=== PATIENT | female | born 1950 | race Caucasian/White ===

== ENCOUNTER 2019-07-09 18:47 | Emergency (ER) | payer OTHER ==
[~2019-07-09] VITALS: Ht 154.9 cm; Wt 73.5 kg
--- NOTE | 2019-07-09 18:47 | NUR ---
Christiano Clive [phone]
--- NOTE | 2019-07-09 18:48 | NUR ---
PT PLACED IN BED 11 BY EMS.
[2019-07-09 18:50] VITALS: BP 156/82
--- NOTE | 2019-07-09 18:50 | NUR ---
PT DENIES CHEST PAIN; NEURO ASSESSMENT WDL.
--- NOTE | 2019-07-09 18:50 | NUR ---
68 Y/O F C/C DIZZINESS,CHILLS,HEADACHE,NAUSEA X TODAY APPROX 1830 HOURS. PT BIBA FROM HOME. H/A PAIN 8. PUPILS PERRLA. UNSTEADY GAIT, UNSTABLE WHEN STANDS UP, ONE PERSON ASSIST NEEDED. ALLERGIES ACETAMINOPHEN, CEFTRIAXONE,CODEINE. HX [place],PACEMAKER,HTN,HLD, PRE-DM. RX NITROGLYCERIN,AMLODOPINE,METROPOLOL,SIMVASTATIN. PT DENIES V/D. SIDE RAIL X1.
--- NOTE | 2019-07-09 18:50 | NUR ---
68 Y/O F C/C DIZZINESS,CHILLS,HEADACHE,NAUSEA X TODAY APPROX 1830 HOURS. PT BIBA FROM HOME. H/A PAIN 8. PUPILS PERRLA. UNSTEADY GAIT, UNSTABLE WHEN STANDS UP, ONE PERSON ASSIST NEEDED. ALLERGIES ACETAMINOPHEN, CEFTRIAXONE,CODEINE. HX [place],PACEMAKER,HTN,HLD, PRE-DM. RX NITROGLYCERIN,AMLODOPINE,METROPOLOL,SIMVASTATIN. PT DENIES V/D. SIDE RAIL X1.
--- NOTE | 2019-07-09 19:13 | NUR ---
RECEIVED REPORT FROM GABRIELLA GUEVARA. WILL CONT CARE AT THIS TIME.
--- NOTE | 2019-07-09 19:13 | NUR ---
REPORT GIVEN TO HALIMA QUIROZ FOR CONTINUITY OF CARE
[2019-07-09 19:15] LABS: BASOPHILS % (AUTO) 0.7 % (0.0-2.0); EOSINOPHILS # (AUTO) 0.1 K/uL (0-0.4); EOSINOPHILS % (AUTO) 2.2 % (0.0-4.0); HEMATOCRIT 38.2 % (36-48); HEMOGLOBIN 12.9 g/dL (12.0-16.0); LYMPHOCYTES # (AUTO) 2.6 K/uL (2.5-16.5); LYMPHOCYTES % (AUTO) 41.9 % (20.5-51.1); MEAN CORPUSCULAR HEMOGLOBIN 32 pg (27-31); MEAN CORPUSCULAR HGB CONC 34 g/dL (33-37); MEAN CORPUSCULAR VOLUME 94.2 fL (80-94); MONOCYTES # (AUTO) 0.5 K/uL (0.8-1.0); MONOCYTES % (AUTO) 7.4 % (1.7-9.3); NEUTROPHILS % (AUTO) 47.8 % (42.2-75.2); PLATELET COUNT (AUTO) 251 K/uL (140-450); RED BLOOD CELL COUNT(AUTO) 4.06 MIL/uL (4.20-5.40); RED CELL DISTRIBUTION WIDTH 13.1 % (11.6-13.7); WHITE BLOOD COUNT (AUTO) 6.3 K/uL (4.8-10.8)
--- NOTE | 2019-07-09 19:27 | NUR ---
ARSH HIGGINBOTHAM AT BEDSIDE EVAL PT.
[2019-07-09 19:38] LABS: ALBUMIN 3.7 g/dL (3.4-5.0); ANION GAP 13.8 (8-16); CARBON DIOXIDE 28.1 mmol/L (21-32); POTASSIUM 3.9 mmol/L (3.5-5.1); TOTAL BILIRUBIN 0.2 mg/dL (0.0-1.0)
[2019-07-09 21:18] VITALS: BP 123/61
--- NOTE | 2019-07-09 21:18 | NUR ---
Patient discharged with v/s stable. Written and verbal after care instructions given and explained. Patient verbalized understanding. Ambulatory with steady gait. All questions addressed prior to discharge. Advised to follow up with PMD.
== END 2019-07-09 21:18 | disposition home or self-care (01) ==
LOC: MED 18:47
DX: I10 Essential (primary) hypertension (principal); R51 Headache; R42 Dizziness and giddiness; I25.2 Old myocardial infarction; Z95.0 Presence of cardiac pacemaker; Z88.5 Allergy status to narcotic agent; Z88.1 Allergy status to other antibiotic agents; Z88.6 Allergy status to analgesic agent; Z88.8 Allergy status to other drugs, medicaments and biological substances
CPT/HCPCS: 36415; 80053; 81002; 84484; 85025; 93005; 99284

== ENCOUNTER 2020-02-04 14:22 | Emergency (ER) | payer OTHER ==
[~2020-02-04] VITALS: Ht 147.3 cm; Wt 72.6 kg
--- NOTE | 2020-02-04 14:39 | NUR ---
Pt triaged and complete assessment at bedside.
[2020-02-04 14:43] VITALS: BP 204/82
--- NOTE | 2020-02-04 14:45 | NUR ---
69 y/o female A&OX4 c/o 01/07 headache radiating to left arm and leg described as throbbing. Pt is anxious, clear speaking in short sentences. Pt states woke up this morning and could not see. No vision at this time. + PERRLA. PMH: HTN RX: Unknown Allergies: See chart.
--- NOTE | 2020-02-04 14:57 | NUR ---
[facility] [place] [phone]
[2020-02-04] MEDS ORDERED: NACL 0.9% 1,000 ML IV ONE (15:10)
[2020-02-04] MEDS ORDERED: MORPHINE SULFATE 4 MG/ML SYR IVP ONE (15:10)
[2020-02-04 15:40] LABS: BASOPHILS # (AUTO) 0.1 K/uL (0.00-0.22); BASOPHILS % (AUTO) 0.9 % (0.0-2.0); EOSINOPHILS # (AUTO) 0.2 K/uL (0-0.4); EOSINOPHILS % (AUTO) 2.2 % (0.0-4.0); HEMATOCRIT 37.7 % (36-48); HEMOGLOBIN 12.8 g/dL (12.0-16.0); LYMPHOCYTES # (AUTO) 2.9 K/uL (2.5-16.5); LYMPHOCYTES % (AUTO) 37.4 % (20.5-51.1); MEAN CORPUSCULAR HEMOGLOBIN 31 pg (27-31); MEAN CORPUSCULAR HGB CONC 34 g/dL (33-37); MEAN CORPUSCULAR VOLUME 91.7 fL (80-94); MONOCYTES # (AUTO) 0.6 K/uL (0.8-1.0); NEUTROPHILS % (AUTO) 51.5 % (42.2-75.2); PLATELET COUNT (AUTO) 252 K/uL (140-450); RED BLOOD CELL COUNT(AUTO) 4.11 MIL/uL (4.20-5.40); RED CELL DISTRIBUTION WIDTH 13.9 % (11.6-13.7); WHITE BLOOD COUNT (AUTO) 7.7 K/uL (4.8-10.8)
[2020-02-04 15:58] LABS: ALBUMIN 3.8 g/dL (3.4-5.0); ANION GAP 14.1 (8-16); CARBON DIOXIDE 26.5 mmol/L (21-32); CREATININE 0.9 mg/dL (0.6-1.3); POTASSIUM 3.6 mmol/L (3.5-5.1); TOTAL BILIRUBIN 0.7 mg/dL (0.0-1.0)
--- NOTE | 2020-02-04 16:19 | NUR ---
Pt up to commode at bedside for UA collection.
[2020-02-04] MEDS ORDERED: PANTOPRAZOLE 40 MG INJ VIAL IVP ONE (16:40)
--- NOTE | 2020-02-04 16:58 | NUR ---
Pt repositioned for comfort, HOB elevated, VSS, will continue to monitor.
--- NOTE | 2020-02-04 17:12 | NUR ---
FLYNN Paniagua at bedside re-evaluating patient
[2020-02-04 17:22] VITALS: BP 154/78
--- NOTE | 2020-02-04 17:22 | NUR ---
Patient discharged with v/s stable. Written and verbal after care instructions given and explained. Patient alert, oriented and verbalized understanding of instructions. Ambulatory with steady gait. All questions addressed prior to discharge. ID band removed. Patient advised to follow up with PMD. Rx of tynenol extra strength 500mg tablet 1-2 tabs BID given. Patient educated on indication of medication including possible reaction and side effects. Opportunity to ask questions provided and answered.
== END 2020-02-04 17:22 | disposition home or self-care (01) ==
LOC: MED 14:22
DX: R51.9 Headache, unspecified (principal); I10 Essential (primary) hypertension; Z88.1 Allergy status to other antibiotic agents; Z88.5 Allergy status to narcotic agent; Z88.6 Allergy status to analgesic agent; Z88.8 Allergy status to other drugs, medicaments and biological substances; Z95.0 Presence of cardiac pacemaker
CPT/HCPCS: 36415; 80053; 81002; 84484; 85025; 93005; 96361; 96374; 96375; 99283; C9113; J2270; J7030; 99284

== ENCOUNTER 2021-02-07 02:24 | Observation (INO) | payer OTHER ==
[~2021-02-07] VITALS: Ht 165.1 cm; Wt 79.4 kg
[2021-02-07 02:28] VITALS: BP 157/60
--- NOTE | 2021-02-07 02:34 | NUR ---
pt ambulated to bed #8
[2021-02-07] MEDS ORDERED: NITROGLYCERIN 2% 1 GM PKT TP ONE (02:35)
[2021-02-07] MEDS ORDERED: ASPIRIN 325 MG TAB PO ONE (02:35)
[2021-02-07] MEDS ORDERED: MORPHINE SULFATE 4 MG/ML SYR IVP ONE (02:35)
[2021-02-07] MEDS ORDERED: AMLO2.5T PO (03:16)
[2021-02-07] MEDS ORDERED: ATOR10TA PO (03:17)
[2021-02-07] MEDS ORDERED: METO25TE2 PO (03:18)
[2021-02-07 03:21] LABS: BASOPHILS # (AUTO) 0.1 K/uL (0.00-0.22); EOSINOPHILS # (AUTO) 0.4 K/uL (0-0.4); EOSINOPHILS % (AUTO) 5.3 % (0.0-4.0); HEMOGLOBIN 13.1 g/dL (12.0-16.0); LYMPHOCYTES # (AUTO) 3.3 K/uL (2.5-16.5); LYMPHOCYTES % (AUTO) 42.7 % (20.5-51.1); MEAN CORPUSCULAR HEMOGLOBIN 32 pg (27-31); MEAN CORPUSCULAR HGB CONC 34 g/dL (33-37); MONOCYTES # (AUTO) 0.6 K/uL (0.8-1.0); MONOCYTES % (AUTO) 7.7 % (1.7-9.3); NEUTROPHILS # (AUTO) 3.4 K/uL (1.8-7.7); NEUTROPHILS % (AUTO) 43.3 % (42.2-75.2); PLATELET COUNT (AUTO) 255 K/uL (140-450); RED BLOOD CELL COUNT(AUTO) 4.15 MIL/uL (4.20-5.40); RED CELL DISTRIBUTION WIDTH 13.5 % (11.6-13.7); WHITE BLOOD COUNT (AUTO) 7.8 K/uL (4.8-10.8)
[2021-02-07 03:24] LABS: ALBUMIN 3.3 g/dL (3.4-5.0); ANION GAP 11.4 (8-16); CARBON DIOXIDE 28.5 mmol/L (21-32); CREATININE 0.8 mg/dL (0.6-1.3); POTASSIUM 3.9 mmol/L (3.5-5.1); TOTAL BILIRUBIN 0.3 mg/dL (0.0-1.0)
[2021-02-07 03:33] LABS: CHOL/HDL RATIO 3.8 (1-4.5)
--- NOTE | 2021-02-07 06:30 | NUR ---
PATIENT FEELIN BETTER ABOUT CHEST PAIN BUT NOW IS COMPLAINIG ABOUT EPIGASTRYC PAIN //DiCaprio RN
[2021-02-07] MEDS ORDERED: POTASSIUM CHLORIDE 10 MEQ TABER PO PRN (06:35)
[2021-02-07] MEDS ORDERED: MAG SULF 2000 MG/WATER PREMIX 50 ML IV PRN (06:35)
[2021-02-07] MEDS ORDERED: ONDANSETRON 4 MG/2 ML VIAL IVP PRN (06:35)
[2021-02-07] MEDS ORDERED: KCL 20 MEQ/WATER INJ PREMIX 200 ML IV PRN (06:35)
[2021-02-07] MEDS ORDERED: ACETAMINOPHEN 325 MG TAB PO PRN (06:35)
[2021-02-07] MEDS ORDERED: MORPHINE SULFATE 4 MG/ML SYR IVP PRN (06:35)
[2021-02-07] MEDS ORDERED: MAGNESIUM OXIDE 400 MG TAB PO PRN (06:35)
[2021-02-07] MEDS ORDERED: HYDROcodone/APAP 5/325 MG 1 TAB TAB PO PRN (06:35)
[2021-02-07] MEDS ORDERED: FAMOTIDINE 20 MG/2 ML VIAL IVP ONE (06:40)
--- NOTE | 2021-02-07 07:20 | NUR ---
Report and continuation of care received from GABRIELLA Morgan.
--- NOTE | 2021-02-07 07:25 | NUR ---
Son remains at bedside states + relief to chest pain 05/10. Tender to palpation but "I feel a lot better right now." county assessor in place. Denies SOB, headache, nausea. Bed locked in lowest position, side rails x 1, call light in reach. Blankets provided.
--- NOTE | 2021-02-07 07:57 | NUR ---
Report given to GABRIELLA Salinas. All questions answered.
--- NOTE | 2021-02-07 08:05 | NUR ---
Patient will be admitted to care of Dr. Vidal. Admited to Telemetry. Will go to room 111A. Belongings list completed. Report to GABRIELLA Salinas.
[2021-02-07 08:06] VITALS: BP 103/58
--- NOTE | 2021-02-07 08:06 | NUR ---
RECEIVED PT FROM ER NURSE, PT IS ALERT AND ORIENTED, AMBULATED TO THE BED, ON RA, IV LINE NOTED ON THE LAC G. 20 ON SALINE LOCK, PT IS ACCOMPANIED BY SON ON BEDSIDE, NO SIGN OF DISTRESS NOTED AND WILL CONTINUE TO MONITOR PT.
[2021-02-07] MEDS ORDERED: DOCUSATE SODIUM 100 MG GELCAP PO SCH (09:00)
--- NOTE | 2021-02-07 10:38 | NUR ---
SPOKE WITH DR. PARNELL, THE ELEVATOR BUILDER AND MD SAID THAT ON HIS STANDPOINT THE PT IS CLEARED TO GO HOME. PT AND SON ARE BOTH MADE AWARE.
[2021-02-07 13:08] VITALS: BP 104/89
--- NOTE | 2021-02-07 13:46 | NUR ---
DISCHARGED PT ACCOMPANIED BY SON, DISCHARGED TEACHING AND INSTRUCTION GIVEN TO PT AND PT VERBALIZED UNDERSTANDING, IV LINE REMOVED AND PT DENIES PAIN AT THIS TIME.
--- NOTE | 2021-02-07 14:24 | NUR ---
DC PLANNING: THE PATIENT ADMITTED THROUGH THE ED FROM HOME WITH A 2 DAY C/O CHEST PAIN. THE PATIENT HAS A HISTORY OF HTN, HYPERLIPIDEMIA AND SICK SINUS SYNDROME WITH A DUAL CHAMBER PACEMAKER. THE PATIENT WAS ADMITTED FOR CARDIAC W/U AND ECHO, FINDINGS NEGATIVE FOR CARDIAC INVOLVEMENT. THE PATIENT WAS EVALUATED BY CARDIOLOGY AND CLEARED FOR DISCHARGE, THE PATIENT RETURNED HOME WITH FAMILY. CM WILL FOLLOW NEEDED.
== END 2021-02-07 13:50 | disposition home or self-care (01) ==
LOC: MED 02:24 → MTU 06:36
PROVIDERS: ADMIT Hospitalist; ATTEND Hospitalist
DX: M94.0 Chondrocostal junction syndrome [Tietze] (principal); Z20.822 Contact with and (suspected) exposure to COVID-19; G43.909 Migraine, unspecified, not intractable, without status migrainosus; I20.9 Angina pectoris, unspecified; I10 Essential (primary) hypertension; E78.5 Hyperlipidemia, unspecified; R73.03 Prediabetes; E88.09 Other disorders of plasma-protein metabolism, not elsewhere classified; Z95.0 Presence of cardiac pacemaker; Z90.710 Acquired absence of both cervix and uterus; Z79.899 Other long term (current) drug therapy
CPT/HCPCS: 36415; 71045; 80053; 80061; 83880; 84484; 85025; 85379; 87081; 87426; 93005; 93307; 96372; 96374; 96375; 99291; G0378; J1644; J2270; J3490

== ENCOUNTER 2021-04-05 17:19 | Emergency (ER) | payer OTHER ==
[~2021-04-05] VITALS: Ht 162.6 cm; Wt 78.0 kg
[~2021-04-05 17:19] MED LIST: AMLO2.5T PO; ATOR10TA PO; METO25TE2 PO
[2021-04-05 18:42] VITALS: BP 180/78
--- NOTE | 2021-04-05 20:34 | NUR ---
SEEN AND EXAMINED BY ARSH
[2021-04-05] MEDS ORDERED: MORPHINE SULFATE 4 MG/ML SYR IM ONE (20:35)
[2021-04-05] MEDS ORDERED: ACET-8386 PO (20:44)
[2021-04-05 21:04] VITALS: BP 146/78
--- NOTE | 2021-05-07 20:33 | NUR ---
LATE ENTRY--MORPHINE SULFATE 4MG GIVEN TO PT
== END 2021-04-05 21:05 | disposition home or self-care (01) ==
LOC: MED 17:19
DX: R51.9 Headache, unspecified (principal); M54.2 Cervicalgia; I10 Essential (primary) hypertension; Z95.0 Presence of cardiac pacemaker; Z90.49 Acquired absence of other specified parts of digestive tract; Z90.710 Acquired absence of both cervix and uterus; Z79.899 Other long term (current) drug therapy; Z88.6 Allergy status to analgesic agent; Z88.1 Allergy status to other antibiotic agents; Z88.5 Allergy status to narcotic agent; Z88.8 Allergy status to other drugs, medicaments and biological substances
CPT/HCPCS: 81002; 96372; 99283; J2270; 99281

== ENCOUNTER 2022-10-31 14:10 | Emergency (ER) | payer OTHER ==
[~2022-10-31] VITALS: Ht 160 cm; Wt 74.8 kg
[~2022-10-31 14:10] MED LIST changes: +ACET-8905 PO
[2022-10-31 14:18] VITALS: BP 140/78; PULSE 102; RESP 18; TEMP 101.3; O2SAT 95
[2022-10-31] MEDS: NACL 0.9% 1,000 ML IV SCH ×2 (15:07→15:31)
[2022-10-31 15:14] LABS: BASOPHILS % (AUTO) 0.4 % (0.0-2.0); EOSINOPHILS # (AUTO) 0.1 K/uL (0-0.4); EOSINOPHILS % (AUTO) 0.6 % (0.0-4.0); HEMATOCRIT 38.7 % (36-48); HEMOGLOBIN 13.2 g/dL (12.0-16.0); LYMPHOCYTES # (AUTO) 0.6 K/uL (2.5-16.5); LYMPHOCYTES % (AUTO) 7.7 % (20.5-51.1); MEAN CORPUSCULAR HEMOGLOBIN 32 pg (27-31); MEAN CORPUSCULAR HGB CONC 34 g/dL (33-37); MEAN CORPUSCULAR VOLUME 92.6 fL (80-94); MONOCYTES # (AUTO) 0.6 K/uL (0.8-1.0); MONOCYTES % (AUTO) 7.4 % (1.7-9.3); NEUTROPHILS # (AUTO) 7.1 K/uL (1.8-7.7); NEUTROPHILS % (AUTO) 83.9 % (42.2-75.2); PLATELET COUNT (AUTO) 227 K/uL (140-450); RED BLOOD CELL COUNT(AUTO) 4.18 MIL/uL (4.20-5.40); RED CELL DISTRIBUTION WIDTH 13.2 % (11.6-13.7); WHITE BLOOD COUNT (AUTO) 8.4 K/uL (4.8-10.8)
[2022-10-31] MEDS ORDERED: FAMOTIDINE 20 MG/2 ML VIAL IVP ONE (15:20)
[2022-10-31] MEDS ORDERED: ONDANSETRON 4 MG/2 ML VIAL IVP ONE (15:20)
[2022-10-31] MEDS ORDERED: IBUPROFEN 800 MG TAB PO ONE (15:20)
[2022-10-31] MEDS ORDERED: IBUPROFEN 800 MG TAB ONE (15:26)
[2022-10-31] MEDS ORDERED: FAMOTIDINE 20 MG/2 ML VIAL ONE (15:26)
[2022-10-31] MEDS ORDERED: ONDANSETRON 4 MG/2 ML VIAL ONE (15:26)
[2022-10-31 15:27] LABS: PROTHROMBIN TIME 10.8 secs (10.8-13.4)
[2022-10-31 15:33] LABS: ALBUMIN 3.8 g/dL (3.4-5.0); ANION GAP 12.1 (8-16); ASPARTATE AMINOTRANSFERASE 29 U/L (15-37); CARBON DIOXIDE 27.2 mmol/L (21-32); CHLORIDE 102 mmol/L (98-107); CREATININE 0.9 mg/dL (0.6-1.3); GFR ARICAN-AMERICAN 80 mL/min (>90); GLUCOSE 115 mg/dL (74-106); POTASSIUM 3.3 mmol/L (3.5-5.1); SODIUM SERUM 138 mmol/L (136-145); TOTAL BILIRUBIN 0.5 mg/dL (0.0-1.0); UREA NITROGEN, BLOOD 8 mg/dL (7-18)
--- NOTE | 2022-10-31 15:57 | NUR ---
Per Maikel Giles LVN, NaCl 0.9 1L started at 1507 and stopped at 1557. ED director aware.
[2022-10-31] MEDS ORDERED: ONDA-188 SL (17:09)
[2022-10-31] MEDS ORDERED: IBUP-2213 PO (17:09)
[2022-10-31] MEDS ORDERED: MAA30 PO (17:09)
[2022-10-31 17:12] VITALS: TEMP 98.5
[2022-10-31 17:25] VITALS: BP 112/67; PULSE 74; RESP 17; O2SAT 98
== END 2022-10-31 17:30 | disposition home or self-care (01) ==
LOC: MED 14:10
DX: B34.9 Viral infection, unspecified (principal); E87.6 Hypokalemia; I10 Essential (primary) hypertension; Z95.0 Presence of cardiac pacemaker; Z88.1 Allergy status to other antibiotic agents; Z88.5 Allergy status to narcotic agent; Z88.8 Allergy status to other drugs, medicaments and biological substances; Z88.6 Allergy status to analgesic agent; Z79.899 Other long term (current) drug therapy
CPT/HCPCS: 36415; 71045; 80053; 81002; 82550; 83605; 84484; 85025; 85610; 85730; 87040; 87086; 87426; 87804; 96361; 96374; 96375; 99284; J2405; J3490; J7030